=== PATIENT | male | born 1995 | race Caucasian/White ===

== ENCOUNTER 2016-07-07 18:07 | Emergency (ER) | payer OTHER ==
[2016-07-07 18:20] VITALS: BP 141/61; PULSE 66; RESP 15; TEMP 97.9; O2SAT 98
--- NOTE | 2016-07-07 19:18 | UCPHY ---
H & P Time Seen by Provider: 07/07/16 19:06 Patient Type: New HPI/ROS: This patient sustained a head injury playing intramural football with friends today without a helmet. He was jumping up to catch a pass was struck by another player. He is uncertain if this was elbow or other body part but he was briefly dazed for approximately 2 minutes from the injury to the left infraorbital region. He reports a mild 3/10 frontal headache associated with this. The injury occurred shortly prior to arrival and he is accompanied by his mother for evaluation. He has not had any medications. He notes no exacerbating or alleviating factors. ROS: No constitutional symptoms. Neuro: No LOC. No numbness tingling or focal weakness except for some paresthesias to the left cheek just inferior to the infraorbital injury. No confusion. No amnesia. HEENT: No visual changes. No diplopia. No change in hearing. No intraoral injuries. No nasal injury or mandibular pain. Musculoskeletal: No neck or back pain. Pulmonary: Denies any chest injuries. GI: No belly pain. No nausea or vomiting. 10 point ROS is otherwise negative. Past Medical/Surgical History: Otherwise healthy. Social History: He is a student at [employer] Smoking Status: Never smoked Physical Exam: Physical exam: Vital signs are normal General: Patient is in no acute distress. HEENT: Patient has a small left infraorbital contusion there is no associated zygoma tenderness. He has minimal localized tenderness associated with this. No bony step-off or deformity. Nose atraumatic. Ears: Clear bilaterally with no hemotympanum. Oropharynx: No dental trauma or malocclusion. No intraoral lacerations. Eyes: Pupils are equal and reactive to light. Extraocular motions are intact. Optic fundi: Clear with no papilledema or hemorrhage. No diplopia with extraocular motions Neck: Trachea is midline with no stridor. The patient has no midline neck tenderness and retains a full range of motion without increase in pain. Lungs: Clear to auscultation bilaterally no chest wall tenderness. Cardiac: Regular rate and rhythm no murmur gallop or rub. Chest: Nontender. Abdomen: Soft nontender no organomegaly Back: Nontender Extremities: Atraumatic Neuro: GCS of 15. Cranial nerves II through XII intact with the exception of slight decreased light touch sensation just inferior to the infraorbital contusion. No motor deficits. 3 out of 3 five-minute memory is intact. Cerebellar exam is normal as judged by symmetric rapid hand movements bilaterally. No pronator drift. No sensory or motor deficits are appreciated. Initial differential diagnosis: Concussion without loss of consciousness, infraorbital contusion, maxillary fracture, cerebral contusion, orbital fracture Constitutional: Initial Vital Signs Temperature (C) 36.6 C 07/07/16 18:18 Heart Rate 66 07/07/16 18:18 Respiratory Rate 15 07/07/16 18:18 Blood Pressure 141/61 H 07/07/16 18:18 O2 Sat (%) 98 07/07/16 18:18 O2 Delivery Mode Room Air Allergies/Adverse Reactions: No Known Allergies Allergy (Unverified 07/07/16 18:17) Home Medications: Medication Instructions Recorded NK [No Known Home Meds] 07/07/16 MDM/Departure - MDM Medications Given: Discontinued Medications Acetaminophen (Tylenol) 975 mg PO EDNOW ONE Stop: 07/07/16 19:20 Last Admin: 07/07/16 19:33 Dose: 975 mg ED Course/Re-evaluation: Patient is treated with Tylenol. We discussed the possibility of maxillary fracture. I think that his facial paresthesias are attributable to contusion at the facial nerve. Patient wishes to hold off on facial bone imaging at this time given his mild degree of discomfort. I think this is reasonable given lack of any diplopia, underlying significant bony tenderness or deformity. No red flags in terms of his history or physical exam regarding head injury. I counseled the patient regarding concussion precautions. - Depart Disposition: Home, Routine, Self-Care Clinical Impression: Facial paresthesia Periorbital contusion of left eye Qualifiers: Encounter type: initial encounter Qualified Code(s): S05.12XA - Contusion of eyeball and orbital tissues, left eye, initial encounter Condition: Good Instructions: Concussion (ED) Additional Instructions: Diagnosis: 1. Concussion without loss of consciousness 2. Periorbital contusion Plan: Ice 20 minutes at a time few times a day to the periorbital contusion Limit activity until symptoms improve-no active is a true risk for recurrent head injury for 7 days after resolution of your current symptoms. Tylenol for pain control as needed Go to the emergency department for any significant worsening despite treatment plan Stand Alone Forms: School Excuse Referrals: NONE *PRIMARY CARE P,. [Primary Care Provider] - As per Instructions - PQRS PQRS Measurement: NA
[2016-07-07] MEDS ORDERED: ACETAMINOPHEN 325 MG TAB PO ONE (19:19)
== END 2016-07-07 19:35 | disposition home or self-care (01) ==
LOC: CED 18:07
DX: S05.12XA Contusion of eyeball and orbital tissues, left eye, initial encounter (principal); S06.0X0A Concussion without loss of consciousness, initial encounter; R20.2 Paresthesia of skin; Y93.62 Activity, american flag or touch football; W50.0XXA Accidental hit or strike by another person, initial encounter
CPT/HCPCS: G0463-PO